=== PATIENT | female | born 1975 | race Caucasian/White ===

== ENCOUNTER → 2016-11-30 | Emergency (ER) | payer OTHER ==
[~2016-11-30] VITALS: Ht 147.3 cm; Wt 82.0 kg
[~2016-11-30] MED LIST: AC500T PO; AMOX400T12 PO; CEPH500T PO; CRUT1EAC7 MC; HYDR-3702 PO; HYDR-3811 PO; IBP200T PO; IBUP-15 PO; KETOROLAC 60 MG/2 ML (TORADOL) VIAL IM ONE; METH4TAB27 PO; NF-TORA10 PO; ORPHENADRINE 60 MG/2 ML (NORFLEX) AMP IM ONE; TOPAMAX PO; TRM50T PO
[2016-11-30 09:10] VITALS: BP 124/80
--- NOTE | 2016-11-30 10:29 | Diagnostic Imaging Report ---
INDICATION: Fall 5 days ago with right hip pain. DISCUSSION: AP view of the pelvis and two views of the right hip are obtained, no comparison. Mild degenerative changes are noted within the bilateral sacroiliac joints. No fracture or dislocation. Moderate degenerative changes are noted within the right hip. Soft tissues are unremarkable. IMPRESSION: 1. 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 No acute fracture or dislocation. Dictated by: Dictated on workstation # [id number]
== END | disposition home or self-care (01) ==
LOC: ED 09:09
DX: S70.01XA Contusion of right hip, initial encounter (principal); M16.11 Unilateral primary osteoarthritis, right hip
CPT/HCPCS: 73502; 96372; 99282; J1885; J2360; 99283

== ENCOUNTER → 2017-01-11 | Emergency (ER) | payer OTHER ==
[~2017-01-11] VITALS: Ht 147.3 cm; Wt 79.2 kg
[~2017-01-11] MED LIST changes: -AC500T PO; -AMOX400T12 PO; -CEPH500T PO; -CRUT1EAC7 MC; -HYDR-3702 PO; -HYDR-3811 PO; -IBP200T PO; -IBUP-15 PO; -KETOROLAC 60 MG/2 ML (TORADOL) VIAL IM ONE; -METH4TAB27 PO; -NF-TORA10 PO; -ORPHENADRINE 60 MG/2 ML (NORFLEX) AMP IM ONE; -TOPAMAX PO; -TRM50T PO; +methylPREDNISolone 125 MG (Solu-MEDROL) VIAL IM ONE
[2017-01-11 10:01] VITALS: BP 110/59
== END | disposition home or self-care (01) ==
LOC: ED 09:18
DX: M54.31 Sciatica, right side (principal)
CPT/HCPCS: 96372; 99282; J2930; 99283

== ENCOUNTER 2017-02-11 09:13 | Emergency (ER) | payer OTHER ==
[~2017-02-11] VITALS: Ht 147.3 cm; Wt 81.6 kg
[2017-02-11 09:39] VITALS: BP 145/87
== END 2017-02-11 09:42 | disposition home or self-care (01) ==
LOC: ED 09:15
DX: L60.0 Ingrowing nail (principal); L53.8 Other specified erythematous conditions; M79.674 Pain in right toe(s)
CPT/HCPCS: 99282; 99283

== ENCOUNTER 2017-03-16 06:50 | Emergency (ER) | payer OTHER ==
[~2017-03-16] VITALS: Ht 149.9 cm; Wt 82.5 kg
[~2017-03-16 06:50] MED LIST changes: +AC500T PO; +AMOX400T12 PO; +CEPH500T PO; +CRUT1EAC7 MC; +HYDR-3702 PO; +HYDR-3811 PO; +IBP200T PO; +IBUP-15 PO; +METH4TAB27 PO; +NF-TORA10 PO; +TOPAMAX PO; +TRM50T PO; -methylPREDNISolone 125 MG (Solu-MEDROL) VIAL IM ONE
[2017-03-16] MEDS ORDERED: AC500T PO (07:10)
[2017-03-16] MEDS ORDERED: ASPIRIN 81 MG CHEW (LOW-DOSE) PO ONE (07:20)
[2017-03-16] MEDS ORDERED: SODIUM CHLORIDE FLUSH 10 ML SYR IV PRN (07:20)
[2017-03-16] MEDS ORDERED: SODIUM CHLORIDE FLUSH 3 ML SYR IV PRN (07:20)
[2017-03-16] MEDS ORDERED: KETOROLAC 30 MG/ML (TORADOL) 1 ML VIAL IV ONE (07:20)
[2017-03-16 07:25] LABS: BASOPHILS % (AUTO) 0 % (0-2); EOSINOPHILS # (AUTO) 0.2 10^3uL; EOSINOPHILS % (AUTO) 3 % (0-4); LYMPHOCYTES # (AUTO) 2.1 X10^3; MEAN CORPUSCULAR HGB CONC 34.4 g/dL (31.0-37.0); MEAN CORPUSCULAR VOLUME 92 FL (80-100); MONOCYTES # (AUTO) 0.6 X10^3; MONOCYTES % (AUTO) 8 % (3-11); NEUTROPHILS # (AUTO) 4.3 X10^3; NEUTROPHILS % (AUTO) 60 % (51-67); PLATELET COUNT 186 10^3uL (150-450); WHITE BLOOD COUNT 7.21 10^3uL (4.0-11.0)
[2017-03-16 07:35] LABS: MEAN CORPUSCULAR HEMOGLOBIN 31.8 PG (26.0-34.0)
--- NOTE | 2017-03-16 08:05 | Diagnostic Imaging Report ---
INDICATION: Chest pain. FINDINGS: Single view examination of the chest fails to reveal evidence of active parenchymal pathology or pleural effusion. The cardiac silhouette is normal. IMPRESSION: Negative chest. Dictated by: Dictated on workstation # [id number]
--- NOTE | 2017-03-16 08:41 | NUR ---
Patient rounds, no complaints voiced.
[2017-03-16 08:59] LABS: ALBUMIN 3.7 g/dL (3.4-5.0); ALKALINE PHOSPHATASE 38 U/L (38-126); BUN/CREATININE RATIO 23 (10-20); CALCULATED IONIZED CALCIUM 4.2 mg/dL (3.8-4.6); TOTAL PROTEIN 6.6 g/dL (6.4-8.5)
[2017-03-16] MEDS ORDERED: HYDR-3702 PO (09:12)
[2017-03-16 09:18] VITALS: BP 92/60
== END 2017-03-16 09:34 | disposition home or self-care (01) ==
LOC: EDUNIT# 06:50 → ED 06:51
DX: M94.0 Chondrocostal junction syndrome [Tietze] (principal)
CPT/HCPCS: 36415; 71010; 80053; 84484; 85025; 93005; 96374; 99283; J1885; 93010; 99284